=== PATIENT | male | born 1955 | race Caucasian/White ===

== ENCOUNTER 2021-09-19 04:12 | Inpatient (IN) | payer BC, SELFPAY ==
[2021-09-19] MEDS ORDERED: Acetaminophen 325 MG TAB PO PRN (07:27)
[2021-09-19] MEDS ORDERED: Dextrose 50% Abboject 50 ML SYRINGE SLOW IVP PRN (07:27)
[2021-09-19] MEDS ORDERED: Ondansetron PF 4 MG/2 ML Vial IVP PRN (07:27)
[2021-09-19] MEDS ORDERED: Dextrose 5% in Water 1,000 ML IV PRN (07:27)
[2021-09-19 08:20] LABS: Phosphorus 3.3 mg/dL (2.3-4.7)
[2021-09-19 08:24] LABS: CRP (Inflammatory) 13.91 mg/dL (= or < 0.5); Magnesium 2.5 mg/dL (1.6-2.6)
[2021-09-19] MEDS ORDERED: Dexamethasone 10 MG in Sodium Chloride 0.9% 50 ML IVPB SCH (09:00)
[2021-09-19] MEDS ORDERED: Enoxaparin Sodium 40 MG/0.4 ML SYRINGE SC SCH (09:00)
[2021-09-19] MEDS ORDERED: hydrALAZINE 20 MG/ML VIAL SLOW IVP PRN (09:02)
[2021-09-19] MEDS ORDERED: Azithromycin 500 MG VIAL ONE (09:03)
[2021-09-19] MEDS ORDERED: Thiamine 100 MG TAB PO SCH (09:15)
[2021-09-19 09:44] LABS: Anion Gap 14 mmol/L (10-20); BUN (Urea Nitrogen) 25 mg/dL (8.4-25.7); Calc. Creatinine Clearance 0 mL/min (70-130); Calcium 8.1 mg/dL (7.8-10.44); Carbon Dioxide 23 mmol/L (23-31); Chloride 101 mmol/L (98-107); Glucose 188 mg/dL (80-115); Potassium 3.9 mmol/L (3.5-5.1); Sodium 134 mmol/L (136-145)
[2021-09-19] MEDS: Azithromycin 500 MG in Sodium Chloride 0.9% 250 ML 250 ML IVPB SCH (11:35)
[2021-09-19] MEDS: Famotidine/PF 20 mg/2ml Vial SLOW IVP SCH ×2 (11:35→21:05)
[2021-09-19] MEDS: Ascorbic Acid 500 mg Chewable Tablet PO SCH (11:35)
[2021-09-19] MEDS: Dexamethasone 10 MG/ML VIAL SLOW IVP SCH ×2 (11:35→21:05)
[2021-09-19] MEDS: Cholecalciferol 1,000 UNITS (25 MCG) TAB PO SCH (11:35)
[2021-09-19] MEDS: Zinc Sulfate 220 MG CAP PO SCH (11:35)
[2021-09-19 13:20] LABS: Hemoglobin A1c 8.3 % (4.0-6.0)
[2021-09-19] MEDS: cefTRIAXone\\ROCEPHIN 2 GM in Sodium Chloride 0.9% 100 ML IVPB SCH (15:30)
[2021-09-19 17:41] LABS: SARS-CoV-2 NAA Rapid Test DETECTED (NotDetected)
[2021-09-19] MEDS ORDERED: FLU VACC QS2021-22(6MOS UP)/PF 60 MCG/0.5 ML SYRINGE IM ONE (18:00)
[2021-09-19] MEDS: Mometasone 200 MCG/Formoterol 5 MCG 120 PUFF INHALER INH SCH (18:52)
[2021-09-19] MEDS: Enoxaparin Sodium 40 MG/0.4 ML SYRINGE SC SCH (21:05)
[2021-09-19] MEDS: HumaLOG 300 UNITS/3 ML VIAL SC PRN (21:06)
[2021-09-19] MEDS ORDERED: Melatonin 3 MG TAB PO SCH (23:59)
[2021-09-20 03:32] LABS: #Lymphocytes 0.7 thou/uL (1.20-3.40); #Monocytes 0.4 thou/uL (0.11-0.59); #Neutrophils 8.6 thou/uL (1.40-6.50); %Eosinophils 0.1 % (0.0-10.0); %Lymphocytes 6.9 % (21.0-51.0); %Neutrophils 88.9 % (42.0-75.0); Mean Corpuscular Hemoglobin 30.5 pg (27.0-31.0); Mean Corpuscular Volume 89.5 fL (78.0-98.0); Mean Platelet Volume 7.4 fL (7.4-10.4); Platelet Count 292 thou/uL (130-400); RBC Distribution Width 12.1 % (11.5-14.5); Red Blood Cell (RBC) Count 4.61 mill/uL (4.70-6.10); White Blood Cell (WBC) Count 9.7 thou/uL (4.8-10.8)
[2021-09-20 05:24] LABS: Band 2 % (5-11); Lymphocytes 4 % (21-51); MDiff Complete? YES; Monocytes 5 % (0-10); Neutrophil 89 % (42-75)
[2021-09-20] MEDS: HumaLOG 300 UNITS/3 ML VIAL SC PRN ×4 (06:11→20:29)
[2021-09-20] MEDS: Zinc Sulfate 220 MG CAP PO SCH (08:45)
[2021-09-20] MEDS: Cholecalciferol 1,000 UNITS (25 MCG) TAB PO SCH (08:45)
[2021-09-20] MEDS: Dexamethasone 10 MG/ML VIAL SLOW IVP SCH ×2 (08:45→20:21)
[2021-09-20] MEDS: Famotidine/PF 20 mg/2ml Vial SLOW IVP SCH ×2 (08:45→20:20)
[2021-09-20] MEDS: Aspirin 81 mg Enteric Coated Tablet PO SCH (08:45)
[2021-09-20] MEDS: Ascorbic Acid 500 mg Chewable Tablet PO SCH (08:45)
[2021-09-20] MEDS: Enoxaparin Sodium 40 MG/0.4 ML SYRINGE SC SCH ×2 (08:46→20:20)
[2021-09-20 11:41] LABS: ALT (SGPT) 19 U/L (8-55); AST (SGOT) 21 U/L (5-34); Albumin 3.1 g/dL (3.4-4.8); Alkaline Phosphatase 66 U/L (40-110); Bilirubin, Direct 0.5 mg/dL (0.1-0.3); Bilirubin, Total 0.8 mg/dL (0.2-1.2); Protein, Total 6.7 g/dL (5.8-8.1)
[2021-09-20] MEDS: cefTRIAXone\\ROCEPHIN 2 GM in Sodium Chloride 0.9% 100 ML IVPB SCH (12:30)
[2021-09-20] MEDS: Azithromycin 500 MG in Sodium Chloride 0.9% 250 ML 250 ML IVPB SCH (12:30)
[2021-09-20] MEDS ORDERED: BARICITINIB IVPB PRN (13:18)
[2021-09-20] MEDS: Mometasone 200 MCG/Formoterol 5 MCG 120 PUFF INHALER INH SCH ×2 (13:57→20:21)
[2021-09-20] MEDS: BARICITINIB 2 MG TAB PO SCH (20:19)
[2021-09-21 03:30] LABS: #Lymphocytes 0.6 thou/uL (1.20-3.40); #Monocytes 0.6 thou/uL (0.11-0.59); %Basophils 0.1 % (0.0-1.0); %Eosinophils 0.2 % (0.0-10.0); %Neutrophils 89.7 % (42.0-75.0); Hemoglobin 13.9 g/dL (14.0-18.0); Mean Corpuscular HGB CONC 34.4 g/dL (32.0-36.0); Mean Corpuscular Hemoglobin 30.4 pg (27.0-31.0); Mean Corpuscular Volume 88.3 fL (78.0-98.0); Mean Platelet Volume 7.3 fL (7.4-10.4); Platelet Count 295 thou/uL (130-400); Red Blood Cell (RBC) Count 4.58 mill/uL (4.70-6.10); White Blood Cell (WBC) Count 11.1 thou/uL (4.8-10.8)
[2021-09-21 03:54] LABS: ALT (SGPT) 21 U/L (8-55); AST (SGOT) 21 U/L (5-34); Albumin 2.9 g/dL (3.4-4.8); Alkaline Phosphatase 59 U/L (40-110); Bilirubin, Direct 0.4 mg/dL (0.1-0.3); Bilirubin, Total 0.7 mg/dL (0.2-1.2); Protein, Total 6.3 g/dL (5.8-8.1)
[2021-09-21 03:55] LABS: Lymphocytes 5 % (21-51); MDiff Complete? YES; Monocytes 2 % (0-10); Neutrophil 93 % (42-75); Platelet Morphology Comment Appears Adequate; RBC Morphology Normal
[2021-09-21] MEDS: HumaLOG 300 UNITS/3 ML VIAL SC PRN ×4 (06:32→21:10)
[2021-09-21] MEDS: Mometasone 200 MCG/Formoterol 5 MCG 120 PUFF INHALER INH SCH ×2 (06:34→21:09)
[2021-09-21] MEDS: Losartan 25 MG TAB PO SCH (08:02)
[2021-09-21] MEDS: Ascorbic Acid 500 mg Chewable Tablet PO SCH (08:02)
[2021-09-21] MEDS: Amlodipine 10 MG TAB PO SCH (08:02)
[2021-09-21] MEDS: Cholecalciferol 1,000 UNITS (25 MCG) TAB PO SCH (08:02)
[2021-09-21] MEDS: Zinc Sulfate 220 MG CAP PO SCH (08:02)
[2021-09-21] MEDS: Enoxaparin Sodium 40 MG/0.4 ML SYRINGE SC SCH ×2 (08:03→21:06)
[2021-09-21] MEDS: Dexamethasone 10 MG/ML VIAL SLOW IVP SCH ×2 (08:03→21:09)
[2021-09-21] MEDS: Famotidine/PF 20 mg/2ml Vial SLOW IVP SCH ×2 (08:03→21:05)
[2021-09-21] MEDS: Aspirin 81 mg Enteric Coated Tablet PO SCH (08:03)
[2021-09-21] MEDS: Azithromycin 500 MG in Sodium Chloride 0.9% 250 ML 250 ML IVPB SCH (12:54)
[2021-09-21] MEDS: cefTRIAXone\\ROCEPHIN 2 GM in Sodium Chloride 0.9% 100 ML IVPB SCH (12:54)
[2021-09-21] MEDS ORDERED: Dextrose 5% in Water 1,000 ML IV PRN (14:20)
[2021-09-21] MEDS ORDERED: Dextrose 50% Abboject 50 ML SYRINGE SLOW IVP PRN (14:20)
[2021-09-21] MEDS: BARICITINIB 2 MG TAB PO SCH (21:05)
[2021-09-21] MEDS: Melatonin 3 MG TAB PO PRN (21:06)
[2021-09-22 04:54] LABS: #Lymphocytes 0.6 thou/uL (1.20-3.40); #Monocytes 0.7 thou/uL (0.11-0.59); #Neutrophils 11.2 thou/uL (1.40-6.50); %Basophils 0.1 % (0.0-1.0); %Eosinophils 0.2 % (0.0-10.0); %Lymphocytes 4.9 % (21.0-51.0); %Monocytes 5.5 % (0.0-10.0); %Neutrophils 89.3 % (42.0-75.0); Hemoglobin 13.6 g/dL (14.0-18.0); Mean Corpuscular HGB CONC 32.5 g/dL (32.0-36.0); Mean Corpuscular Hemoglobin 28.4 pg (27.0-31.0); Mean Corpuscular Volume 87.4 fL (78.0-98.0); Mean Platelet Volume 7.5 fL (7.4-10.4); Platelet Count 303 thou/uL (130-400); RBC Distribution Width 11.9 % (11.5-14.5); Red Blood Cell (RBC) Count 4.79 mill/uL (4.70-6.10); White Blood Cell (WBC) Count 12.6 thou/uL (4.8-10.8)
[2021-09-22 05:17] LABS: Band 4 % (5-11); Lymphocytes 5 % (21-51); MDiff Complete? YES; Monocytes 2 % (0-10); Neutrophil 89 % (42-75); Platelet Morphology Comment Appears Adequate; RBC Morphology Normal
[2021-09-22] MEDS: HumaLOG 300 UNITS/3 ML VIAL SC PRN ×4 (06:15→20:26)
[2021-09-22] MEDS: Mometasone 200 MCG/Formoterol 5 MCG 120 PUFF INHALER INH SCH ×3 (06:18→20:30)
[2021-09-22] MEDS: Cholecalciferol 1,000 UNITS (25 MCG) TAB PO SCH (08:20)
[2021-09-22] MEDS: Aspirin 81 mg Enteric Coated Tablet PO SCH (08:20)
[2021-09-22] MEDS: Famotidine/PF 20 mg/2ml Vial SLOW IVP SCH ×2 (08:20→20:23)
[2021-09-22] MEDS: Dexamethasone 10 MG/ML VIAL SLOW IVP SCH ×2 (08:20→20:23)
[2021-09-22] MEDS: Amlodipine 10 MG TAB PO SCH (08:20)
[2021-09-22] MEDS: Ascorbic Acid 500 mg Chewable Tablet PO SCH (08:20)
[2021-09-22] MEDS: Losartan 25 MG TAB PO SCH (08:20)
[2021-09-22] MEDS: Zinc Sulfate 220 MG CAP PO SCH (08:20)
[2021-09-22] MEDS: Enoxaparin Sodium 40 MG/0.4 ML SYRINGE SC SCH ×2 (08:22→20:23)
[2021-09-22] MEDS: Azithromycin 500 MG in Sodium Chloride 0.9% 250 ML 250 ML IVPB SCH (10:50)
[2021-09-22] MEDS: cefTRIAXone\\ROCEPHIN 2 GM in Sodium Chloride 0.9% 100 ML IVPB SCH (12:09)
[2021-09-22] MEDS: BARICITINIB 2 MG TAB PO SCH (20:22)
[2021-09-23 03:19] LABS: #Lymphocytes 0.6 thou/uL (1.20-3.40); #Monocytes 0.8 thou/uL (0.11-0.59); #Neutrophils 10.1 thou/uL (1.40-6.50); %Basophils 0.2 % (0.0-1.0); %Eosinophils 0.2 % (0.0-10.0); %Lymphocytes 5.2 % (21.0-51.0); %Monocytes 6.5 % (0.0-10.0); %Neutrophils 87.9 % (42.0-75.0); Hemoglobin 14.9 g/dL (14.0-18.0); Mean Corpuscular HGB CONC 34.4 g/dL (32.0-36.0); Mean Corpuscular Hemoglobin 30.3 pg (27.0-31.0); Mean Platelet Volume 7.2 fL (7.4-10.4); Platelet Count 328 thou/uL (130-400); RBC Distribution Width 11.9 % (11.5-14.5); Red Blood Cell (RBC) Count 4.92 mill/uL (4.70-6.10); White Blood Cell (WBC) Count 11.5 thou/uL (4.8-10.8)
[2021-09-23 04:04] LABS: Lymphocytes 3 % (21-51); MDiff Complete? YES; Monocytes 4 % (0-10); Neutrophil 93 % (42-75); Platelet Morphology Comment Appears Adequate; RBC Morphology Normal
[2021-09-23] MEDS: Mometasone 200 MCG/Formoterol 5 MCG 120 PUFF INHALER INH SCH ×2 (05:52→19:49)
[2021-09-23] MEDS: HumaLOG 300 UNITS/3 ML VIAL SC PRN ×4 (05:54→22:52)
[2021-09-23] MEDS: Zinc Sulfate 220 MG CAP PO SCH (09:00)
[2021-09-23] MEDS: Amlodipine 10 MG TAB PO SCH (09:00)
[2021-09-23] MEDS: Aspirin 81 mg Enteric Coated Tablet PO SCH (09:00)
[2021-09-23] MEDS: Losartan 25 MG TAB PO SCH (09:00)
[2021-09-23] MEDS: Ascorbic Acid 500 mg Chewable Tablet PO SCH ×2 (09:00→10:38)
[2021-09-23] MEDS: Cholecalciferol 1,000 UNITS (25 MCG) TAB PO SCH (09:00)
[2021-09-23] MEDS: Famotidine/PF 20 mg/2ml Vial SLOW IVP SCH ×2 (09:01→22:04)
[2021-09-23] MEDS: Enoxaparin Sodium 40 MG/0.4 ML SYRINGE SC SCH ×2 (09:01→22:04)
[2021-09-23] MEDS: Dexamethasone 10 MG/ML VIAL SLOW IVP SCH (09:01)
[2021-09-23] MEDS: cefTRIAXone\\ROCEPHIN 2 GM in Sodium Chloride 0.9% 100 ML IVPB SCH (09:01)
[2021-09-23] MEDS: BARICITINIB 2 MG TAB PO SCH (22:03)
[2021-09-23] MEDS: Melatonin 3 MG TAB PO PRN (22:04)
[2021-09-24] MEDS: HumaLOG 300 UNITS/3 ML VIAL SC PRN ×4 (05:57→21:25)
[2021-09-24] MEDS: Azithromycin 250 MG TAB PO SCH (09:35)
[2021-09-24] MEDS: Cholecalciferol 1,000 UNITS (25 MCG) TAB PO SCH (09:35)
[2021-09-24] MEDS: Aspirin 81 mg Enteric Coated Tablet PO SCH (09:35)
[2021-09-24] MEDS: Famotidine/PF 20 mg/2ml Vial SLOW IVP SCH ×2 (09:35→21:25)
[2021-09-24] MEDS: Zinc Sulfate 220 MG CAP PO SCH (09:35)
[2021-09-24] MEDS: Amlodipine 10 MG TAB PO SCH (09:36)
[2021-09-24] MEDS: Ascorbic Acid 500 mg Chewable Tablet PO SCH (09:36)
[2021-09-24] MEDS: Losartan 25 MG TAB PO SCH (09:36)
[2021-09-24] MEDS: Dexamethasone 4 MG TAB PO SCH (09:36)
[2021-09-24] MEDS: Mometasone 200 MCG/Formoterol 5 MCG 120 PUFF INHALER INH SCH ×2 (09:37→22:36)
[2021-09-24] MEDS: Enoxaparin Sodium 40 MG/0.4 ML SYRINGE SC SCH ×2 (09:37→21:25)
[2021-09-24 11:15] LABS: #Eosinphils 0.1 thou/uL (0.0-0.7); #Lymphocytes 1.3 thou/uL (1.20-3.40); #Monocytes 1.1 thou/uL (0.11-0.59); #Neutrophils 8.5 thou/uL (1.40-6.50); %Basophils 0.2 % (0.0-1.0); %Eosinophils 0.9 % (0.0-10.0); %Lymphocytes 11.8 % (21.0-51.0); %Monocytes 10.2 % (0.0-10.0); %Neutrophils 76.9 % (42.0-75.0); Hemoglobin 14.8 g/dL (14.0-18.0); Mean Corpuscular HGB CONC 32.2 g/dL (32.0-36.0); Mean Corpuscular Hemoglobin 28.4 pg (27.0-31.0); Mean Platelet Volume 7.7 fL (7.4-10.4); Platelet Count 348 thou/uL (130-400); RBC Distribution Width 12.3 % (11.5-14.5); Red Blood Cell (RBC) Count 5.22 mill/uL (4.70-6.10); White Blood Cell (WBC) Count 11.1 thou/uL (4.8-10.8)
[2021-09-24 11:40] LABS: ALT (SGPT) 32 U/L (8-55); AST (SGOT) 19 U/L (5-34); Alkaline Phosphatase 55 U/L (40-110); Bilirubin, Direct 0.3 mg/dL (0.1-0.3); Bilirubin, Total 0.6 mg/dL (0.2-1.2)
[2021-09-24] MEDS: BARICITINIB 2 MG TAB PO SCH (21:24)
[2021-09-24] MEDS: Melatonin 3 MG TAB PO PRN (21:24)
[2021-09-25 04:31] VITALS: BMI 26.7
[2021-09-25] MEDS: HumaLOG 300 UNITS/3 ML VIAL SC PRN ×2 (06:03→11:53)
[2021-09-25] MEDS: Enoxaparin Sodium 40 MG/0.4 ML SYRINGE SC SCH (08:38)
[2021-09-25] MEDS: Azithromycin 250 MG TAB PO SCH (08:38)
[2021-09-25] MEDS: Dexamethasone 4 MG TAB PO SCH (08:38)
[2021-09-25] MEDS: Amlodipine 10 MG TAB PO SCH (08:39)
[2021-09-25] MEDS: Zinc Sulfate 220 MG CAP PO SCH (08:39)
[2021-09-25] MEDS: Losartan 25 MG TAB PO SCH (08:39)
[2021-09-25] MEDS: Ascorbic Acid 500 mg Chewable Tablet PO SCH (08:39)
[2021-09-25] MEDS: Aspirin 81 mg Enteric Coated Tablet PO SCH (08:39)
[2021-09-25] MEDS: Cholecalciferol 1,000 UNITS (25 MCG) TAB PO SCH (08:39)
[2021-09-25] MEDS: Famotidine/PF 20 mg/2ml Vial SLOW IVP SCH (08:40)
[2021-09-25] MEDS: Mometasone 200 MCG/Formoterol 5 MCG 120 PUFF INHALER INH SCH (08:40)
[2021-09-25 09:02] VITALS: TEMP 98
[2021-09-25 12:13] VITALS: BP 130/80
== END 2021-09-25 14:43 | disposition home or self-care (01) | DRG 177 ==
LOC: ERS 04:12 → ERHOLD 04:45 → IMCU/EMU 10:23 → T4-B 09-23 17:42
PROVIDERS: ADMIT Internal Medicine; ATTEND Family Medicine
PROC: 8E0ZXY6 Isolation (ICD-10-PCS; 2021-09-19)
PROC: XW0DXM6 Introduction of Baricitinib into Mouth and Pharynx, External Approach, New Technology Group 6 (ICD-10-PCS; principal; 2021-09-20)
DX: U07.1 COVID-19 (principal); J12.82 Pneumonia due to coronavirus disease 2019; J96.01 Acute respiratory failure with hypoxia; I10 Essential (primary) hypertension; I35.0 Nonrheumatic aortic (valve) stenosis; E11.9 Type 2 diabetes mellitus without complications; Z79.899 Other long term (current) drug therapy; Z79.84 Long term (current) use of oral hypoglycemic drugs; Z90.49 Acquired absence of other specified parts of digestive tract
CPT/HCPCS: 0240U; 36415; 36416; 71045; 80048; 80076; 83036; 83605; 83735; 83880; 84100; 85007; 85025; 85027; 86140; 87040; 93306; 96374; J0456; J0696; J1100; J1650; J1815; J3490; J7050; J8540; S0028